=== PATIENT | male | born 1980 | race Caucasian/White ===

== ENCOUNTER 2019-02-17 20:48 | Emergency (ER) | payer OTHER ==
[2019-02-17] MEDS: SODIUM CHLORIDE 0.9% 1L BAG IV* (22:27)
[2019-02-17] MEDS: IBUPROFEN 600 MG TAB PO (22:29)
[2019-02-17 22:31] LABS: ADD MAN DIFF? NO
[2019-02-17 22:37] LABS: WHITE BLOOD COUNT 6.9 10^3/ul (4.8-10.8)
[2019-02-17 22:37] LABS: BASOPHILS % 0.4 % (0.0-2.0); EOSINOPHILS % 0.3 % (0.0-7.0); HEMATOCRIT 45.8 % (42.0-52.0); HEMOGLOBIN 15.5 g/dl (14.0-18.0); LYMPHOCYTES # 1.4 10^3/ul (0.8-2.9); MEAN CORPUSCULAR HEMOGLOBIN 30.8 pg (29.0-33.0); MEAN CORPUSCULAR HGB CONC 33.8 g/dl (32.0-37.0); MEAN CORPUSCULAR VOLUME 91.1 fl (82.0-101.0); MONOCYTE # 0.7 10^3/ul (0.3-0.9); MONOCYTES % 9.7 % (0.0-11.0); NEUTROPHIL # 4.8 10^3/ul (1.6-7.5); NEUTROPHILS % 69.3 % (39.0-77.0); PLATELET COUNT 158 10^3/UL (140-415); RED BLOOD COUNT 5.03 10^6/ul (4.70-6.10)
[2019-02-17 22:57] LABS: INR 0.94; PROTIME 12.7 Sec (11.9-14.9)
[2019-02-17 22:58] LABS: ALANINE AMINOTRANSFERASE 41 IU/L (13-69); ALBUMIN 4.7 g/dl (3.3-4.9); ALBUMIN/GLOBULIN RATIO 1.34; ALKALINE PHOSPHATASE 58 IU/L (42-121); ANION GAP 13 (5-13); ASPARTATE AMINO TRANSFERASE 40 IU/L (15-46); BILIRUBIN,INDIRECT 0.2 mg/dl (0-1.1); BILIRUBIN,TOTAL 0.2 mg/dl (0.2-1.3); BLOOD UREA NITROGEN 9 mg/dl (7-20); CALCIUM 9.6 mg/dl (8.4-10.2); CARBON DIOXIDE 22 mmol/L (21-31); CHLORIDE 101 mmol/L (97-110); CREATININE 0.68 mg/dl (0.61-1.24); Estimated GFR > 60 mL/min (>60); GLUCOSE 97 mg/dl (70-220); LIPASE 75 U/L (23-300); PARTIAL THROMBOPLASTIN TIME 33.5 Sec (23.0-35.0); POTASSIUM 3.8 mmol/L (3.5-5.1); SODIUM 136 mmol/L (135-144); TOTAL PROTEIN 8.2 g/dl (6.1-8.1)
[2019-02-17 23:10] LABS: TROPONIN-I < 0.012 ng/ml (0.000-0.120)
== END 2019-02-18 00:46 | disposition home or self-care (01) ==
LOC: E/R 02-18 00:46
DX: J06.9 Acute upper respiratory infection, unspecified (principal); R07.9 Chest pain, unspecified; F17.210 Nicotine dependence, cigarettes, uncomplicated
CPT/HCPCS: 36415; 71045; 80053; 83690; 84484; 85025; 85610; 85730; 87040; 87400; 93005; 99285-25